=== PATIENT | female | born 1955 | race African-American/Black ===

== ENCOUNTER 2020-06-20 11:34 | Emergency (ER) | payer MEDICARE, MEDICAID ==
[2020-06-20] MEDS ORDERED: Ketorolac Tromethamine 30 MG/ML VIAL ONE (14:25)
== END 2020-06-20 14:42 ==
LOC: CSHERS 11:34
DX: M19.011 Primary osteoarthritis, right shoulder (principal); E11.9 Type 2 diabetes mellitus without complications; I10 Essential (primary) hypertension; M79.7 Fibromyalgia; K21.9 Gastro-esophageal reflux disease without esophagitis; G47.30 Sleep apnea, unspecified; M19.90 Unspecified osteoarthritis, unspecified site; Z79.84 Long term (current) use of oral hypoglycemic drugs; Z79.899 Other long term (current) drug therapy; F17.210 Nicotine dependence, cigarettes, uncomplicated
CPT/HCPCS: 96372; J1885

== ENCOUNTER 2020-07-31 17:46 | Emergency (ER) | payer MEDICARE, MEDICAID ==
[2020-07-31] MEDS ORDERED: predniSONE 20 MG TAB ONE (18:59)
[2020-07-31] MEDS ORDERED: Acetaminophen 500 MG TAB ONE (18:59)
[2020-07-31] MEDS ORDERED: Ventolin HFA Inhaler 60 PUFF INHALER ONE (19:09)
[2020-07-31 20:40] LABS: SARS-CoV-2 NAA Rapid Test Not Detected (NotDetected)
== END 2020-07-31 21:07 | disposition home or self-care (01) ==
LOC: CSHERS 17:46
DX: H65.192 Other acute nonsuppurative otitis media, left ear (principal); J06.9 Acute upper respiratory infection, unspecified; Z20.822 Contact with and (suspected) exposure to COVID-19; E11.9 Type 2 diabetes mellitus without complications; G47.30 Sleep apnea, unspecified; I10 Essential (primary) hypertension; M79.7 Fibromyalgia; M19.90 Unspecified osteoarthritis, unspecified site; K21.9 Gastro-esophageal reflux disease without esophagitis; F17.210 Nicotine dependence, cigarettes, uncomplicated; Z79.84 Long term (current) use of oral hypoglycemic drugs; Z79.899 Other long term (current) drug therapy
CPT/HCPCS: 0240U; 71045; 94760; J7512

== ENCOUNTER 2021-03-06 15:13 | Inpatient (IN) | payer OTHER, MEDICAID ==
[2021-03-06 17:02] LABS: #Monocytes 0.4 10x3/uL (0.0-1.1); #Neutrophils 1.6 10x3/uL (1.5-8.4); %Basophils 0.9 % (0.0-2.0); %Eosinophils 1.2 % (0.0-6.0); %Lymphocytes 40.5 % (18.0-47.0); %Monocytes 11.7 % (0.0-10.0); %Neutrophils 45.4 % (40.0-75.0); Hemoglobin 12.6 g/dL (12.0-15.5); Mean Corpuscular HGB CONC 30.8 g/dL (32.0-36.0); Mean Corpuscular Hemoglobin 26.3 pg (27.0-33.0); Mean Corpuscular Volume 85.4 fl (81.6-98.3); Mean Platelet Volume 9.2 fl (7.4-10.4); Platelet Count 243 10x3/uL (150-450); RBC Distribution Width 15.9 % (11.5-14.5); Red Blood Cell (RBC) Count 4.79 10x6/uL (3.90-5.03); White Blood Cell (WBC) Count 3.4 10x3/uL (3.5-10.5)
[2021-03-06 17:07] LABS: D-Dimer Test 0.66 mg/L FEU (0.19-0.50); PTT 26.4 sec (22.0-33.0); Prothrombin Time 11.4 sec (9.5-12.1)
[2021-03-06 17:09] LABS: ALT (SGPT) 75 U/L (8-55); AST (SGOT) 103 U/L (5-34); Albumin 3.9 g/dL (3.4-4.8); Alkaline Phosphatase 209 U/L (40-110); Anion Gap 14 mmol/L (10-20); BUN (Urea Nitrogen) 10 mg/dL (9.8-20.1); Bilirubin, Total 0.4 mg/dL (0.2-1.2); Calc. Creatinine Clearance 0 mL/min (70-130); Calcium 9.1 mg/dL (7.8-10.44); Carbon Dioxide 28 mmol/L (23-31); Chloride 98 mmol/L (98-107); Globulin 3.5 g/dL (2.4-3.5); Glucose 139 mg/dL (80-115); Magnesium 1.8 mg/dL (1.6-2.6); Potassium 3.2 mmol/L (3.5-5.1); Protein, Total 7.4 g/dL (5.8-8.1); Sodium 137 mmol/L (136-145)
[2021-03-06 17:44] LABS: SARS-CoV-2 NAA Rapid Test DETECTED (NotDetected)
[2021-03-06] MEDS ORDERED: Dexamethasone 10 MG/ML VIAL ONE (17:52)
[2021-03-06 18:59] LABS: Bilirubin Neg (Negative); Blood, Urine Negative (Negative); Clarity Clear (Clear); Glucose, Urine (Dipstick) Normal (Negative); Ketone, Urine Negative (Negative); Leukocyte Negative (Negative); Nitrite Negative (Negative); Protein, Urine (Dipstick) 15 mg/dl (Neg-Trace)
[2021-03-06] MEDS ORDERED: Acetaminophen 325 MG TAB PO PRN (20:59)
[2021-03-06 21:26] LABS: Magnesium 1.8 mg/dL (1.6-2.6)
[2021-03-06] MEDS ORDERED: Potassium Chloride 20 MEQ TAB ONE (23:50)
[2021-03-07] MEDS: Sodium Chloride 0.9% 1,000 ML IV SCH ×2 (00:35→20:30)
[2021-03-07] MEDS ORDERED: Potassium Chloride 20 MEQ TAB ONE ×2 (01:59→04:21)
[2021-03-07 04:17] LABS: #Monocytes 0.1 10x3/uL (0.0-1.1); #Neutrophils 3.3 10x3/uL (1.5-8.4); %Basophils 0.5 % (0.0-2.0); %Lymphocytes 22.1 % (18.0-47.0); %Monocytes 2.3 % (0.0-10.0); %Neutrophils 74.9 % (40.0-75.0); Hemoglobin 12.4 g/dL (12.0-15.5); Mean Corpuscular HGB CONC 30.3 g/dL (32.0-36.0); Mean Corpuscular Hemoglobin 25.7 pg (27.0-33.0); Mean Corpuscular Volume 84.7 fl (81.6-98.3); Mean Platelet Volume 9.4 fl (7.4-10.4); Platelet Count 255 10x3/uL (150-450); RBC Distribution Width 15.5 % (11.5-14.5); Red Blood Cell (RBC) Count 4.83 10x6/uL (3.90-5.03); White Blood Cell (WBC) Count 4.3 10x3/uL (3.5-10.5)
[2021-03-07] MEDS: Potassium Chloride 20 MEQ TAB PO SCH ×2 (04:24)
[2021-03-07 04:26] LABS: Anion Gap 15 mmol/L (10-20); BUN (Urea Nitrogen) 10 mg/dL (9.8-20.1); Calc. Creatinine Clearance 0 mL/min (70-130); Calcium 8.7 mg/dL (7.8-10.44); Carbon Dioxide 25 mmol/L (23-31); Chloride 101 mmol/L (98-107); Glucose 194 mg/dL (80-115); Sodium 137 mmol/L (136-145)
[2021-03-07] MEDS: Enoxaparin Sodium 40 MG/0.4 ML SYRINGE SC SCH (08:28)
[2021-03-07] MEDS ORDERED: Enoxaparin Sodium 40 MG/0.4 ML SYRINGE ONE (08:32)
[2021-03-07] MEDS ORDERED: Acetaminophen 325 MG TAB ONE (11:28)
[2021-03-07] MEDS ORDERED: Ventolin HFA Inhaler 60 PUFF INHALER INH PRN (18:30)
[2021-03-07] MEDS ORDERED: Rosuvastatin 20 MG TAB PO SCH (21:00)
[2021-03-08 01:02] VITALS: BMI 41.6
[2021-03-08] MEDS: Sodium Chloride 0.9% 1,000 ML IV SCH (02:30)
[2021-03-08] MEDS ORDERED: HumaLOG 300 UNITS/3 ML VIAL SC PRN (03:00)
[2021-03-08] MEDS ORDERED: Dextrose 5% in Water 1,000 ML IV PRN (03:00)
[2021-03-08] MEDS ORDERED: Dextrose 50% Abboject 50 ML SYRINGE IVP PRN (03:00)
[2021-03-08] MEDS ORDERED: Dexamethasone 4 MG TAB PO SCH (08:00)
[2021-03-08] MEDS: Enoxaparin Sodium 40 MG/0.4 ML SYRINGE SC SCH (08:37)
[2021-03-08] MEDS ORDERED: Amlodipine 5 MG TAB PO SCH (09:00)
[2021-03-08] MEDS ORDERED: Hydrochlorothiazide 25 MG TAB PO SCH (09:00)
[2021-03-08] MEDS ORDERED: Lisinopril/Hydrochlorothiazide 20 mg/12.5 mg Tablet PO SCH (09:00)
[2021-03-08] MEDS ORDERED: Lisinopril 20 MG TAB PO SCH (09:00)
[2021-03-08 11:52] VITALS: BP 113/74; TEMP 98.1
[2021-03-08] MEDS ORDERED: Famotidine 20 MG TAB PO SCH ×2 (12:00→21:00)
== END 2021-03-08 15:00 | disposition home or self-care (01) | DRG 177 ==
LOC: CSHERS 15:13 → CSHERHOLD 23:50 → CSHTELE 03-07 19:46
PROVIDERS: ADMIT Family Medicine; ATTEND Physician Assistant
PROC: 8E0ZXY6 Isolation (ICD-10-PCS; principal; 2021-03-06)
DX: U07.1 COVID-19 (principal); J12.82 Pneumonia due to coronavirus disease 2019; J96.91 Respiratory failure, unspecified with hypoxia; E66.2 Morbid (severe) obesity with alveolar hypoventilation; Z68.41 Body mass index [BMI] 40.0-44.9, adult; I10 Essential (primary) hypertension; M19.90 Unspecified osteoarthritis, unspecified site; K21.9 Gastro-esophageal reflux disease without esophagitis; I25.10 Atherosclerotic heart disease of native coronary artery without angina pectoris; F17.210 Nicotine dependence, cigarettes, uncomplicated; E87.6 Hypokalemia; E11.42 Type 2 diabetes mellitus with diabetic polyneuropathy; Z95.5 Presence of coronary angioplasty implant and graft; Z90.710 Acquired absence of both cervix and uterus; Z90.49 Acquired absence of other specified parts of digestive tract
CPT/HCPCS: 36415; 36416; 71045; 71275; 80048; 80053; 81003; 83605; 83735; 83880; 84484; 85025; 85379; 85610; 85730; 86140; 86850; 86900; 86901; 87040; 93005; 94760; J1100; J1650; J1815; J7050; J8540; U0002